=== PATIENT | female | born 1975 ===

== ENCOUNTER 2017-08-24 08:24 | Day surgery (SDC) | payer OTHER | END 2017-08-24 17:10 | disposition home or self-care (01) | LOC: CIR.AMB 08:24 | DX: N84.0 Polyp of corpus uteri (principal) ==

== ENCOUNTER 2020-06-27 09:15 | Inpatient (IN) | payer OTHER ==
[~2020-06-27] VITALS: Ht 165.1 cm; Wt 70.8 kg
== END 2020-07-04 13:45 | disposition home or self-care (01) | DRG 743 ==
LOC: ADM 09:15 → CIR.AMB 07-02 06:25 → SURH 07-02 09:15 → CIR.AMB 07-02 09:15 → EDSTATUS 07-02 09:15 → OB/GYN 07-02 11:58 → CIR.AMB 07-02 13:00 → OB/GYN 07-04 13:45
PROVIDERS: ADMIT Obstetrics & Gynecology; ATTEND Obstetrics & Gynecology
PROC: 0UT90ZL Resection of Uterus, Supracervical, Open Approach (ICD-10-PCS; principal; 2020-07-02 13:00)
DX: N80.0 Endometriosis of uterus (principal); D25.1 Intramural leiomyoma of uterus

== ENCOUNTER 2020-11-27 08:13 | Outpatient (CLI) | payer OTHER | END 2020-11-27 08:18 | disposition home or self-care (01) | LOC: SONOGRAMA 08:13 | PROVIDERS: ATTEND Pathology Anatomic Pathology & Clinical Pathology | DX: E04.1 Nontoxic single thyroid nodule (principal) ==